=== PATIENT | male | born 1965 | race Two or more races ===

== ENCOUNTER 2022-09-03 19:15 | Emergency (ER) | payer BC, SELFPAY ==
[2022-09-03 19:30] VITALS: PULSE 95; RESP 18; TEMP 36.6; O2SAT 96; BMI 29.9
--- NOTE | 2022-09-03 19:34 | EXP.UTC ---
Discharge Plan Disposition Patient Disposition: Still a Patient Condition: Fair Prescriptions Prescriptions: No Action tizanidine 4 mg tablet 4 mg PO TID PRN (Reason: .) albuterol sulfate 90 mcg/actuation HFA aerosol inhaler 1 puff INHALATION NEEDED PRN (Reason: .) Label Comments: INHALE 1 TO 2 PUFFS BY MOUTH EVERY 4 TO 6 HOURS NEEDED loratadine 10 mg tablet 10 mg PO DAILY naproxen 500 mg tablet 500 mg PO BID Label Comments: TAKE 1 TABLET BY MOUTH TWICE DAILY WITH MEALS escitalopram oxalate 20 mg tablet 20 mg PO DAILY rosuvastatin 5 mg tablet 5 mg PO DAILY Label Comments: TAKE 1 TABLET BY MOUTH ONCE DAILY eszopiclone 3 mg tablet 3 mg PO DAILY Label Comments: TAKE 1 TABLET BY MOUTH ONCE DAILY AT NIGHT, TAKE IMMEDIATELY BEFORE BEDTIME Referrals Follow up/Referrals: Jung Schilling [Primary Care Provider] - See instructions Clinical Impressions Clinical Impression: Abdominal pain, right lower quadrant Discharge ED Provider: Theresa (ED)Aly [facility] [place] H[place] General Stated complaint: right side pain, no accident Time Seen by Provider: 09/03/22 19:34 History of Present Illness Provider Complaint: He states that he has had right sided abdominal pain for the past 1 day. He states the pain has been severe at times. He has had a poor appetite today also. He denies vomiting, but he has had nausea. Related Data Home Medications Medication Instructions Recorded Confirmed albuterol sulfate 90 mcg/actuation 1 puff inhalation NEEDED PRN . 09/03/22 09/03/22 aerosol inhaler escitalopram oxalate 20 mg tablet 20 mg PO DAILY . 09/03/22 09/03/22 eszopiclone 3 mg tablet 3 mg PO DAILY . 09/03/22 09/03/22 loratadine 10 mg tablet 10 mg PO DAILY allergies 09/03/22 09/03/22 naproxen 500 mg tablet 500 mg PO BID . 09/03/22 09/03/22 rosuvastatin 5 mg tablet 5 mg PO DAILY . 09/03/22 09/03/22 tizanidine 4 mg tablet 4 mg PO TID PRN . 09/03/22 09/03/22 Allergies Allergy/AdvReac Type Severity Reaction Status Date / Time No Known Allergies Allergy Verified 09/03/22 19:52 [facility] Disclaimer: The information contained in this section may have been updated after the patient was seen, as this information can be updated by other users. Medical History Anxiety High cholesterol Social History Smoking Status: Never smoker alcohol intake: never current occupational status: employed Travel in the last 8 weeks: None ROS Obtained: Yes All systems reviewed & no additional complaints except as documented Constitutional Constitutional: Denies chills, Denies fever(s) and Reports poor appetite ENT Ears, Nose, Mouth, and Throat: Denies dizziness and Denies sore throat Cardiovascular Cardiovascular: Denies dyspnea Respiratory Respiratory: Denies chest congestion, Denies cough and Denies dyspnea Gastrointestinal Gastrointestingal: Reports as per HPI and abdominal pain Genitourinary Male Genitourinary: Denies hematuria, Denies urinary frequency, Denies urinary hesitancy, Denies urinary incontinence and Denies urinary urgency Musculoskeletal Musculoskeletal: Denies arthralgias Integumentary/Breasts Skin/Breast: Denies rash Neurologic Neurologic: Denies dizziness Physical Exam General General appearance: alert and in no apparent distress Head Head exam: atraumatic and normocephalic Eye Eye exam: Present normal appearance, PERRL and EOMI ENT ENT exam: Present normal exam, normal oropharynx, mucous membranes moist, TM's normal bilaterally and normal external ear exam Neck Neck exam: Present normal inspection, full ROM and trachea midline; Absent tenderness, meningismus or lymphadenopathy Chest Chest inspection: Present normal inspection and symmetric chest wall rise; Absent tenderness, rash or abscess Respiratory Respiratory exam: Present normal l
[2022-09-03 20:07] LABS: Apearance,Urine Clear (Clear); Bilirubin,Urine Negative (Negative); Blood, Urine Negative (Negative); Color,Urine Yellow (Yellow); Glucose,Urine (UA) Negative (Negative); Ketones,Urine Negative (Negative); PH,Urine 5.5 (5.0-8.5); Protein,Urine Negative (Negative); Specific Gravity, Urine 1.015 (1.005-1.030); UTC Leukocyte Esterase,Urine Negative (Negative); UTC Nitrate,Urine Negative (Negative); Urobilinogen,Urine 0.2 EU/dl (0.2)
--- NOTE | 2022-09-03 20:37 | PC.NURSE ---
pt brought over from the [facility]
--- NOTE | 2022-09-03 20:45 | CT_ITS ---
PROCEDURE INFORMATION: Exam: CT Abdomen And Pelvis With Contrast Exam date and time: 09/03/22 09:10 PM Age: 57 years old Clinical indication: Abdominal pain; Patient HX: Rlq pain; Additional info: Abd pain TECHNIQUE: Imaging protocol: Computed tomography of the abdomen and pelvis with contrast. Radiation optimization: All CT scans at this facility use at least one of these dose optimization techniques: automated exposure control; mA and/or kV adjustment per patient size (includes targeted exams where dose is matched to clinical indication); or iterative reconstruction. Contrast material: ISOVUE; Contrast volume: 75 ml; Contrast route: IV; REPORTING DATA: Count of CT and Cardiac NM exams in prior 12 months: This patient has received 0 known CTs and 0 known cardiac nuclear medicine studies in the 12 months prior to the current study. COMPARISON: No relevant prior studies available. FINDINGS: Tubes, catheters and devices: None noted. Lungs: Lung bases appear clear. Heart: No significant coronary calcifications. No cardiomegaly. No significant pericardial effusion. Liver: Normal. No mass. Gallbladder and bile ducts: Normal. No calcified stones. No ductal dilation. Pancreas: Normal. No ductal dilation. Spleen: Normal. No splenomegaly. Adrenal glands: Normal. No mass. Kidneys and ureters: Normal. No hydronephrosis. Stomach and bowel: Unremarkable. No obstruction. No mucosal thickening. Appendix: Normal appendix is well visualized. No evidence of appendicitis. Intraperitoneal space: Unremarkable. No free air. No significant fluid collection. Retroperitoneal space: No significant retroperitoneal inflammatory changes are noted. Vasculature: Unremarkable. No abdominal aortic aneurysm. Lymph nodes: Unremarkable. No enlarged lymph nodes. Urinary bladder: Unremarkable as visualized. Reproductive: Unremarkable as visualized. Bones/joints: Unremarkable. No acute fracture. Soft tissues: Unremarkable. IMPRESSION: 1. No acute findings. 2. No CT evidence of appendicitis.
[2022-09-03 20:48] LABS: Microscopic, Urine URINE MICROSCOPIC (MICROSCOPIC)
[2022-09-03 20:50] LABS: Basophils # 0.1 K/mm3 (0-0.2); Basophils % 0.9 % (0.1-2.0); Eosinophils # 0.7 K/mm3 (0.0-0.4); Eosinophils % 6.9 % (0.1-12.0); Hematocrit 44.7 % (42.0-52.0); Hemoglobin 15.4 g/dL (14.1-18.0); Lymphocytes # 3.7 K/mm3 (0.7-4.5); Lymphocytes % 37.8 % (10-50); Mean Corpuscular HGB Conc 34.5 g/dL (31.8-35.4); Mean Corpuscular Hemoglobin 29.7 pg (27.0-31.2); Mean Corpuscular Volume 86.2 fl (80-94); Mean Platelet Volume 8.7 fl (7.4-10.4); Monocytes # 0.5 K/mm3 (0.1-1.0); Monocytes % 4.7 % (1.7-9.3); Neutrophils # 4.8 K/mm3 (1.8-7.8); Neutrophils % 49.6 % (37.0-80.0); Platelet Count 259 K/mm3 (142-424); Red Blood Count 5.18 M/mm3 (4.60-6.20); Red Cell Distribution Width 13.2 % (11.5-17.5); White Blood Count 9.8 K/mm3 (4.8-10.8)
[2022-09-03 20:54] LABS: Appearance,Urine CLEAR (Clear); Bilirubin,Urine Negative (Negative); Blood, Urine Negative (Negative); Color,Urine YELLOW (Yellow); Glucose,Urine (UA) Negative (Negative); Ketones,Urine Negative (Negative); Leukocyte Esterase,Urine Negative (Negative); Nitrate,Urine Negative (Negative); PH,Urine 5.5 (5.0-8.5); Protein,Urine Negative (Negative); Urobilinogen,Urine 0.2 EU/dl (0.2)
[2022-09-03 20:55] LABS: Alanine Aminotransferase 46 U/L (12-78); Albumin Level 4.6 g/dl (3.5-5.0); Albumin/Globulin Ratio 1.3 (1.1-1.8); Alkaline Phosphatase 98 U/L (38-126); Amylase 88 U/L (30-110); Anion Gap 12.9 mEq/L (5-15); Aspartate Amino Transferase 45 U/L (17-59); Bilirubin,Total 0.6 mg/dl (0.2-1.3); Blood Urea Nitrogen 20 mg/dl (9-20); Calcium 8.8 mg/dl (8.4-10.2); Carbon Dioxide 26 mmol/L (22.0-30.0); Chloride 104 mmol/L (98-107); Creatinine Clearance Estimated 104 mL/min (50-200); Estimated Glomerular Filt Rate 87 ml/min (>60); GFR (African American) 105 ML/MIN (>60); Globulin 3.6 g/dL (1.3-3.2); Glucose 98 mg/dl (74-100); Lipase 114 U/L (23-300); Potassium 3.9 mmoL/L (3.5-5.1); Sodium 139 mmol/L (136-145); Total Protein,Serum 8.2 g/dl (6.3-8.2)
[2022-09-03 21:01] LABS: C-Reactive Protein 1.6 mg/L (0-4)
[2022-09-03 21:07] LABS: Bacteria,Urine Trace /lpf
[2022-09-03 21:14] LABS: Erythrocyte Sedimentation Rate 8 mm/hr (0-20); Procalcitonin 0.047 ng/mL (0.0-2.0)
[2022-09-03 21:32] VITALS: BP 159/90; PULSE 86; RESP 19; TEMP 36.8; O2SAT 98; BMI 30.7
--- NOTE | 2022-09-03 22:28 | HMH.EDGENADL ---
Discharge Plan Disposition Patient Disposition: Home, Self-Care Condition: Fair Prescriptions Prescriptions: No Action tizanidine 4 mg tablet 4 mg PO TID PRN (Reason: .) albuterol sulfate 90 mcg/actuation HFA aerosol inhaler 1 puff INHALATION NEEDED PRN (Reason: .) Label Comments: INHALE 1 TO 2 PUFFS BY MOUTH EVERY 4 TO 6 HOURS NEEDED loratadine 10 mg tablet 10 mg PO DAILY naproxen 500 mg tablet 500 mg PO BID Label Comments: TAKE 1 TABLET BY MOUTH TWICE DAILY WITH MEALS escitalopram oxalate 20 mg tablet 20 mg PO DAILY rosuvastatin 5 mg tablet 5 mg PO DAILY Label Comments: TAKE 1 TABLET BY MOUTH ONCE DAILY eszopiclone 3 mg tablet 3 mg PO DAILY Label Comments: TAKE 1 TABLET BY MOUTH ONCE DAILY AT NIGHT, TAKE IMMEDIATELY BEFORE BEDTIME Referrals Follow up/Referrals: Jung Schilling [Primary Care Provider] - See instructions Clinical Impressions Clinical Impression: Abdominal pain, right lower quadrant Instructions Patient Instructions: DI for Acute Pain -- Adult Discharge ED Provider: Theresa (ED)Aly General Adult HPI General Chief complaint: PAIN Stated complaint: right side pain, no accident Time Seen by Provider: 09/03/22 19:34 Mode of Arrival: Family Vehicle Source of Information: Patient and Medical Record Limitations: No Limitations Description of Symptoms (Recalled from ER Triage Doc. by RN): Pt c/o R low back pain that radiates to R flank and down R inner leg to the knee. He reports he has known lumbar herniated disc and[facility], most recently on Sunday (09/01). States the pain began to worsen on while at work and he was sent home. He denies any n/v/d. He reports the pain worsens when he is sitting upright and lessens when laying down. He was tender to R flank area. History of Present Illness HPI narrative: pt seen in the [facility] and has rt sided flank and abd pain - hx of lumbar radicular dis - no fever or rash Onset (ago): day(s) Location: abdomen Severity: moderate Consistency: intermittent Associated symptoms: denies other symptoms Related Data Home Medications Medication Instructions Recorded Confirmed albuterol sulfate 90 mcg/actuation 1 puff inhalation NEEDED PRN . 09/03/22 09/03/22 aerosol inhaler escitalopram oxalate 20 mg tablet 20 mg PO DAILY . 09/03/22 09/03/22 eszopiclone 3 mg tablet 3 mg PO DAILY . 09/03/22 09/03/22 loratadine 10 mg tablet 10 mg PO DAILY allergies 09/03/22 09/03/22 naproxen 500 mg tablet 500 mg PO BID . 09/03/22 09/03/22 rosuvastatin 5 mg tablet 5 mg PO DAILY . 09/03/22 09/03/22 tizanidine 4 mg tablet 4 mg PO TID PRN . 09/03/22 09/03/22 Allergies Allergy/AdvReac Type Severity Reaction Status Date / Time No Known Allergies Allergy Verified 09/03/22 19:52 [facility] Disclaimer: The information contained in this section may have been updated after the patient was seen, as this information can be updated by other users. Medical History Anxiety High cholesterol Social History (Updated 09/03/22 @ 20:35 by Paul Nieves APRN) Smoking Status: Never smoker alcohol intake: never current occupational status: employed Travel in the last 8 weeks: None ROS Obtained: Yes All systems reviewed & no additional complaints except as documented Physical Exam General General appearance: alert and in no apparent distress Head Head exam: normocephalic Eye Eye exam: Present PERRL and EOMI ENT ENT exam: Present mucous membranes moist Neck Neck exam: Present trachea midline Respiratory Respiratory exam: Absent respiratory distress Cardiovascular Cardiovascular exam: Present regular rate Abdominal Exam Abdominal exam: Present soft and tenderness; Absent guarding or rebound Abdominal tenderness: Present RLQ and moderate Extremities Exam Extremities exam: Present full ROM Back Exam
[2022-09-03 22:37] VITALS: BP 145/75; PULSE 75; RESP 20; TEMP 36.8; O2SAT 97
== END 2022-09-03 23:03 | disposition home or self-care (01) ==
LOC: UTC 20:15 → ER 20:32
PROVIDERS: Nurse Practitioner Family; Emergency Provider Emergency Medicine; PCP Family Medicine
DX: R10.31 Right lower quadrant pain (principal); M79.651 Pain in right thigh
CPT/HCPCS: 74177; 80053; 81001; 81003; 82150; 83690; 84145; 85025; 85651; 86140; 87086; 96361; 96374; 99284; 99285; Q9967

== ENCOUNTER 2024-03-28 19:27 | Emergency (ER) | payer BC, OTHER, SELFPAY ==
[2024-03-28 19:46] VITALS: BP 190/116; PULSE 67; RESP 16; TEMP 36.8; O2SAT 95; BMI 33.3
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
[2024-03-28] MEDS: IBUPROFEN 400 MG TABLET 800 MG PO (20:01)
[2024-03-28 20:07] VITALS: BP 161/98; PULSE 64; RESP 20; TEMP 36.6; O2SAT 99
== END 2024-03-28 20:08 | disposition home or self-care (01) ==
PROVIDERS: Emergency Provider Student in an Organized Health Care Education/Training Program; PCP Family Medicine
DX: S09.90XA Unspecified injury of head, initial encounter (principal); S00.83XA Contusion of other part of head, initial encounter; S00.33XA Contusion of nose, initial encounter; G50.1 Atypical facial pain; J34.89 Other specified disorders of nose and nasal sinuses; Y09 Assault by unspecified means
CPT/HCPCS: 99283

== ENCOUNTER 2024-12-08 17:11 | Outpatient (CLI) | payer BC, OTHER, SELFPAY ==
--- OUTSIDE RECORDS SUMMARY | 2020-07-29 14:41 | XMS_ITS | Encounter Summary ---
[facility] Address [address] [place] [address] Care Team Providers Care Promotions Director Name Role Phone Jung Schilling MD Primary Care Provider [phone] Encounter Details Date Type Department Care Team (Late st Contact Info) Description 07/29/2020 2:41 PM EDT Hospital Encounter [facility] [address] [place] [address] Social History Tobacco Use Types Packs/Day Years Used Date Smoking Tobacco: Former Cigarettes 1.3 45 0 04/16/1979 - 04/16/2009 Passive Smoke Exposure: Past Smokeless Tobacco: Never Alcohol Use Standard Drinks/Week Comments Yes 0 (1 standard drink = 0.6 oz pur e alcohol) Social occasions like holidays AUDIT-C Answer Date Recorded Q1: How often do you have a drink containing alc ohol? Monthly or less 03/07/2023 Q2: How many drinks containi ng alcohol do you have on a typical day when you are drinking? 1 or 2 03/07/2023 Q3: How often do you have si x or more drinks on one occasion? Never 03/07/2023 PHQ-2 Answer Date Recorded Retired PHQ-9: Brief Depression Severity Measure Score 0 08/04/2022 Abuse Screen Answer Date Recorded Feels Unsafe at Home or Work/School no 02/05/2023 Feels Threatened by Someone no 10/2 06/2022 Does Anyone Try to Keep You From Having Contact with Others or Doing Things Outside Your Home? no 02/05/2023 Physical Signs of Abuse Present no 02/05/2023 Housing Stability Answer Date Recorded Current Living Arrangements home 02/15 Potentially Unsafe Housing Conditions Not on laura e 03/07/2023 Disabilities Answer Date Recorded Difficulty Concentrating, Remembering or Making Decisions no 03/07/2023 Difficulty Managing Errands Independently yes 03/07/2023 Education Answer Date Recorded Help with school or training? Not on file Preferred Language Not on file 01/20/2023 PHQ-2 Answer Date Recorded Patient Health Questionnaire-9 Score 20 09/15/2024 Sex and Gender Information Value Date Recorded Sex Assigned at Not on file Legal Sex Male 12:14 PM EDT Gender Identity Not on file Sexual Orientation Not on file Occupation Industry Job Start Date Job End Date Not on file Not on file Not on file Not on file documented as of this encounter Functional Status * Question Answer Date of Assessment Author 1. Wish to be (Past 1 Month) Yes 09/15/2024 12:57 PM EDT Patricia Simpson MA 2. Non-Specific Active Suicidal Thoughts (Past 1 Month) No 09/15/2024 12:57 PM EDT Patricia Simpson MA * Calculated C-SSRS Risk Score (Lifetime/Recent) Answer Date of Assessment Author Low Risk 09/15/2024 12:57 PM EDT Tracee Stauffer MA * [place] Suicide Severity Rating Scale (Screener/Recent Self-Report) Question Answer Date of Assessment Author 6. Suicidal Behavior (Lifetime) No 09/15/2024 12:57 PM EDT Patricia Simpson MA * Question Answer Date of Assessment Author Little interest or pleasure in doing things Not at all 09/15/2024 12:57 PM JANAET Tracee Simpson MA Feeling down, depressed, or hopeless Nearly every day 09/15/2024 12:57 PM JANAET Patricia Simpson MA Patient Health Questionnaire-2 Score 3 09/15/2024 12:57 PM EDT Chantal Simpson MA Trouble falling or staying asleep, or sleeping too much Nearly every day 09/15/2024 12:57 PM EDT Patricia Simpson MA Feeling tired or having little energy Nearly every day 09/15/2024 12:57 PM EDT Patricia Simpson MA Poor appetite or overeating Nearly every day 09/15/2024 12:57 PM EDT Patricia Simpson MA Feeling bad about yourself - or that you are a failure or have let yourself or your family down Several days 09/15/2024 12:57 PM EDT Patricia Simpson MA Trouble concentrating on things, such as reading the newspaper or watching television Nearly every day 09/15/2024 12:57 PM JANAET Patricia Simpson MA Moving or speaking so slowly that other people could have noticed? Or the opposite - being so fidgety or restless that you have been moving around a lot more than usual. Nearly every day 09/15/2024 12:57 PM JANAET Patricia Simpson MA Thoughts that you would be better off or hurting yourself in some way Several days 09/15/2024 12:57 PM EDT Alfonso Simpson MA Patient Health Questionnaire-9 Score 20 09/15/2024 12:57 PM JANAET Chantal Simpson MA How difficult have these problems made it for you to do your work, take care of things at home, or get along with other people? Very difficult 09/15/2024 12:57 PM EDT Tracee Simpson MA documented as of this encounter Plan of Treatment Upcoming Encounters Date Type Department Care Team (Late st Contact Info) Description 01/05/2025 2:45 PM EDT Office Visit [facility] [address] [facility] [address] [place] [address] Tory Jerez MD [address] [facility] [address] [place] [address] 02/04/2025 1:15 PM EDT Office Visit [facility] [address] [facility] [address] [place] [address] Ariel Coyne MD [address] [facility] [address] [place], [place] [id number] 02/17/2025 2:00 PM EST Office Visit [facility] [address] [facility] [facility] [address] [place] [address] Aaliyah Montana APRN [address] [facility] [address] [place], [place] [id number] 02/23/2025 9:00 AM EST Office Visit [facility] [address] [place] [address] Jung Schilling MD [address] [place] [address] documented as of this encounter Procedures Procedure Name Priority Date/Time Associated Diagnosis Comments XR CHEST PA AND LATERAL Routine 07/29/2020 2:49 PM EDT SOB (shortness of breath) documented in this encounter Results * XR Chest PA & Lateral (07/29/2020 2:49 PM EDT) Anatomical Region Laterality Modality Body, Chest N/A Radiographic Frieda ging Narrative 07/29/2020 3:37 PM EDT PA and lateral chest x-rays obtained Cardiomegaly is present CT ratio 17 x 31 Mild eventration of both diaphragms but normal position no evidence of diaphragm elevation. No effusions, infiltrates, or consolidation us James Sutherland MD [facility] ORDERABLES Final Result documented in this encounter Visit Diagnoses Not on filedocumented in this encounter Additional Health Concerns Infection Onset Date Last Indicated Resolved Time COVID Screen (preop/placement) 03/26/2022 03/26/2022 03/26/2022 9:54 PM EST Influenza 03/26/2022 04/01/2022 05/01/2022 9:08 PM EST COVID Screen (preop/placement) 04/01/2022 04/01/2022 04/01/2022 4:09 PM EST documented as of this encounter Care Teams Promotions Director Relationship Specialty Start Date End Date Jung Schilling MD [address] [place] [address] PCP - General Family Medicine 11/02/15 documented as of this encounter
--- OUTSIDE RECORDS SUMMARY | 2021-08-13 19:35 | XMS_ITS | Encounter Summary ---
Author Organization [facility] Address [address] [place] [id number] Care Team Providers Care Infection Control Preventionist Name Role Phone Jung Schilling MD Primary Care Provider Reason for Referral * Hospital - Outpatient (Routine) - Closed Specialty Diagnoses / Procedures Referred By Contac t Referred To Contact Sleep Medicine Diagnoses MORROW (dyspnea on exertion) Former smoker Pulmonary hypertension Obesity, Class I, BMI 30-34.9 TREV (obstructive sleep apnea) Procedures Polysomnography 4 or More Parameters Polysomnography 4 or More Parameters With CPAP James Sutherland MD Phone: tel: fax: [facility] [address] [place] [phone] Phone: tel: fax: Referral ID Status Reason Start Date Expiration Date Visits Re quested Visits Authorized [id number] Closed 07/11/2021 09/08/2021 1 1 Reason for Visit * Hospital - Outpatient (Routine) - Closed Specialty Diagnoses / Procedures Referred By Contac t Referred To Contact Sleep Medicine Diagnoses MORROW (dyspnea on exertion) Former smoker Pulmonary hypertension Obesity, Class I, BMI 30-34.9 TREV (obstructive sleep apnea) Procedures Polysomnography 4 or More Parameters Polysomnography 4 or More Parameters With CPAP James Sutherland MD Phone: tel: fax: [facility] [address] [facility] [address] [place] [address] Phone: tel: fax: Referral ID Status Reason Start Date Expiration Date Visits Re quested Visits Authorized [id number] Closed 07/11/2021 09/08/2021 1 1 Encounter Details Date Type Department Care Team (Late st Contact Info) Description 08/13/2021 7:35 PM EDT Hospital Encounter [facility] [address] [facility] [address] [place] [phone] James Sutherland MD [address] [place] [address] MORROW (dyspnea on exertion); Former smoker (Stopped 2009); Mild pulmonary hypertension (R/O WHO Group 3 - TREV); Obesity, Class I, BMI 30-34.9; TREV (obstructive sleep apnea); Former smoker; Pulmonary hypertension Social History Tobacco Use Types Packs/Day Years [...] no 02/05/2023 Feels Threatened by Someone no 01/15 Does Anyone Try to Keep You From [...] on file documented as of this encounter Last Filed Vital Signs Vital Sign Reading Time Taken Comments Blood Pressure - - Pulse 81 08/13/2021 7:36 PM EDT Temperature - - Respiratory Rate - - Oxygen Saturation 95% 08/13/2021 7:36 PM EDT Inhaled Oxygen Concentration - - Weight 87.5 kg (192 lb 14.4 oz) 08/13/2021 7:36 PM EDT Height 165.1 cm (5' 5 ) 08/13/2021 7:36 PM EDT Body Mass Index 32.1 08/13/2021 7:36 PM EDT documented in this encounter Functional Status * Question Answer Date of Assessment Author 1. Wish to be (Past 1 Month) Yes 09/15/2024 12:57 PM EDT Patricia Simpson MA 2. Non-Specific Active Suicidal Thoughts (Past 1 Month) No 09/15/2024 12:57 PM EDT Patricia Simpson MA * Calculated C-SSRS Risk Score (Lifetime/Recent) Answer Date of Assessment Author Low Risk 09/15/2024 12:57 PM EDT Tracee Stauffer MA * [place] Suicide Severity Rating Scale (Screener/Recent Self-Report) Question Answer Date of Assessment Author 6. Suicidal Behavior (Lifetime) No 09/15/2024 12:57 PM EDT Patricia Simpson MA * Question Answer Date of Assessment Author Little interest or pleasure in doing things Not at all 09/15/2024 12:57 PM EDT Tracee Simpson MA Feeling down, depressed, or hopeless Nearly every day 09/15/2024 12:57 PM EDT Patricia Simpson MA Patient Health Questionnaire-2 Score [...] television Nearly every day 09/15/2024 12:57 PM EDT Patricia Simpson MA Moving or speaking so slowly that other people could have noticed? Or the opposite - being so fidgety or restless that you have been moving around a lot more than usual. Nearly every day 09/15/2024 12:57 PM EDT Patricia Simpson MA Thoughts that you would be better off or hurting yourself in some way Several days 09/15/2024 12:57 PM EDT Alfonso Simpson MA Patient Health Questionnaire-9 Score 20 09/15/2024 12:57 PM EDT Chantal Simpson MA How difficult have these problems made it for you to do your work, take care of things at home, or get along with other people? Very difficult 09/15/2024 12:57 PM EDT Tracee Simpson MA documented as of this encounter Plan of Treatment Upcoming Encounters Date Type Department Care Team (Late st Contact Info) Description 01/05/2025 2:45 PM EDT Office Visit [facility] [address] [facility] [address] [place] [address] Tory Jerez MD [address] [facility] [address] [place] [address] 02/04/2025 1:15 PM EDT Office Visit [facility] [address] [facility] [address] [place] [phone] Ariel Coyne MD [address] [facility] [address] [place], [place] [phone] 02/17/2025 2:00 PM EST Office Visit [facility] [address] [phone] Aaliyah Montana APRN [address] [address] 02/23/2025 9:00 AM EST Office Visit [facility] [address] [place] [address] Jung Schilling MD [address] [place] [address] documented as of this encounter Procedures Procedure Name Priority Date/Time Associated Diagnosis Comments NPSG Routine 08/15/2021 9:31 AM EDT MORROW (dyspnea on exertion) Former smoker Pulmonary hypertension Obesity, Class I, BMI 30-34.9 TREV (obstructive sleep apnea) documented in this encounter Results * NPSG (08/15/2021 9:31 AM EDT) Narrative Hugh Romero MD - 08/15/2021 10:32 AM EDT Polysomnography Report Patient Name: Tyrone Landrum Interpreting Physician: Hugh Romero MD Date of : 1965 Referring Physician: No info available Primary Care Physician: Jung Schilling MD Date of Study: Clinical Information 56-year-old male who saw Dr. Isidoro Sutherland on 07/06/2021. He was evaluated for dyspnea on exertion and fatigue. He was noted to have a history of obstructive sleep apnea and was prescribed CPAP in the past but did not think it was helping and so he had not been using it. Records of a sleep study in [place] from 07/25/2020 is in his chart. He had an average AHI of 12 events over 3 nights. He has been noted to have diastolic dysfunction and mild pulmonary hypertension. He has daytime somnolence and snoring. A polysomnogram was ordered. Methods used for Diagnostic Study: Subject was monitored in the sleep laboratory. Electroencephalogram (C3/M2, C4/M1, F3/M2, F4/M1, 01/M2, O2/M1), EOG, EKG, and EMG (chin and bilateral anterior tibialis) were monitored by surface electrodes and recorded utilizing a computerized polygraph. Airflow was recorded by a thermistor and pressure transducer at the nose and mouth and oxygen saturation was recorded by a pulse oximeter. Thoracic and abdominal respiratory movements were recorded on 2 separate channels by respiratory inductive plethysmograph. Sleep stages were scored by standard techniques and abnormal respiratory events, cardiac arrhythmias, and leg movements were analyzed. Polysomnography Results Diagnostic Summary Total Recording Time: Total Recording Time (TIB) (min): 567.1 minutes Total Sleep Time: Total Sleep Time (TST)(min): 528.3 minutes Sleep Latency: Sleep Latency (min): 4.3 Stage R Latency: Stage R Latency (min): 182.5 min Sleep Efficiency: Sleep Efficiency (%): 93.2 % Respiratory Data Obstructive Apnea Index: Obstructive Apnea Index (#/hr TST): 0.8 Central Apnea Index: Central Apnea Index (#/hr TST): 0 Mixed Apnea Index: Mixed Apnea Index (#/hr TST): 0 Obstructive Hypopnea Index: Obstructive Hypopnea Index (#/hr TST): 7.3 Total Apnea Index: Total Apnea Index (#/hr TST): 0.8 AHI: AHI: 8.1 RDI: RDI (if applicable): 14.3 NREM Total Apnea Idex: NREM Total Al (#/hr TST): 0.1 REM Total Apnea Index: REM TOTAL Al (#/hr TST): 3 REM Hypopnea Index: REM Hypopnea Index: 15.6 NREM Hypopnea Index: NREM Hypopnea Index: 4.8 Diagnostic Respiratory Index Summary by Body Position Supine AHI, TOTAL AHI, TOTAL : 8 RDI, TOTAL RDI, TOTAL : 14.2 TST (min) TST (MIN) : 526.5 Left AHI, TOTAL AHI, TOTAL : 33.3 RDI, TOTAL RDI, TOTAL : 33.3 TST (min) TST (min) : 1.8 Right AHI, TOTAL No data recorded RDI, TOTAL No data recorded TST (min) No data recorded Prone AHI, TOTAL No data recorded RDI, TOTAL No data recorded TST (min) No data recorded Arousals Respiratory Arousal Index: Resp Arousal Index (#/hr TST): 3.6 Leg Arousal Index: Leg Arousal Index (#/hr TST): 2 Spontaneous Arousal Index: No data recorded Total Arousal Index: Spontaneous Arousal Index (#/hr TST): 6.8 Limb Movements PLMS Index: Total # PLMS Arousals: 20 PLMS Arousal Index: PLMS Index: 44.7 Cardiac Average HR During Sleep: Avg HR During Sleep: 47.8 bpm Highest HR During Sleep: Highest HR During Sleep: 77 bpm Oximetry Minimum SPO2: Min SpO2: 76 % O2 Saturation, Mean Value: Arterial Oxygen Saturation, Mean Value (%): 93 % Impression: Sleep efficiency was 93%. The arousal index was mildly elevated. The AHI was mildly elevated overall at 8.1. This was higher during REM sleep. He slept almost exclusively in the supine position throughout the night. All of the events appeared to be obstructive in nature. The PLM index was elevated at 45 though the PLM arousal index was not elevated. Significant or prolonged arrhythmias were not noted. Oxygen saturations averaged 93% with minimum saturation of 76% and saturations were less than 88% for 12 minutes in total throughout the night. - mild obstructive sleep apnea is present. - Oxygen desaturation is present. - Snoring is present. Plan: - Recommend trial of CPAP such as AutoSet with an 8 cm minimum an 18 cm maximum. - Recommend weight loss. - Could consider oral appliance therapy. - Could consider surgical options Follow-up: Isidoro Sutherland MD Electronically signed by: Hugh Romero MD 08/15/21 10:29 EDT James Sutherland MD [facility] ORDERABLES Final Result documented in this encounter Visit Diagnoses Diagnosis MORROW (dyspnea on exertion) Other dyspnea and respiratory abnormality Former smoker (Stopped 2009) Personal history of tobacco use, presenting hazards to health Mild pulmonary hypertension (R/O WHO Group 3 - TREV) Other chronic pulmonary heart diseases Obesity, Class I, BMI 30-34.9 TREV (obstructive sleep apnea) Obstructive sleep apnea (adult) (pediatric) documented in this encounter Additional Health Concerns Infection Onset Date Last Indicated Resolved Time COVID Screen (preop/placement) 03/26/2022 03/26/2022 03/26/2022 9:54 PM EST Influenza 03/26/2022 04/01/2022 05/01/2022 9:08 PM EST COVID Screen (preop/placement) 04/01/2022 04/01/2022 04/01/2022 4:09 PM EST Assessment Noted Time PHQ-2 Depression Total Score: 1 07/21/19 22 8:53 AM EDT documented as of this encounter Care Teams Infection Control Preventionist Relationship Specialty Start Date End Date Jung Schilling MD [address] [place] [address] PCP - General Family Medicine 11/02/15 documented as of this encounter
--- OUTSIDE RECORDS SUMMARY | 2023-03-29 13:55 | XMS_ITS | Encounter Summary ---
Author Organization [facility] Address [address] [place] [address] Care Team Providers Care Desk Maker Name Role Phone Jung Schilling MD Primary Care Provider Encounter Details Date Type Department Care Team (Late st Contact Info) Description 03/29/2023 12:55 PM EST Hospital Encounter [facility] PULMONARY & CRITICAL CARE MEDICINE [address] [place] [address] Social History Tobacco Use Types [...] 12:57 PM EDT Tracee Stauffer MA * [place] Suicide Severity Rating Scale (Screener/Recent Self-Report) Question [...] Description 01/05/2025 2:45 PM EDT Office Visit [facility] [address] [facility] [address] [place] [address] Tory Jerez MD 210 [facility] [address] [place] [address] 02/04/2025 1:15 PM EDT Office Visit [facility] ENDOCRINOLOGY [address] [facility] [address] [place] [address] Ariel Coyne MD [address] [place], [place] [address] 02/17/2025 2:00 PM EST Office Visit [facility] RHEUMATOLOGY [address] [place] [address] Aaliyah Montana APRN [address] [facility] [address] [place], [place] [id number] 02/23/2025 9:00 AM EST Office Visit [facility] FAMILY MEDICINE [address] [place] [address] Jung Schilling MD [address] [place] [address] documented as of this encounter Procedures Procedure Name Priority Date/Time Associated Diagnosis Comments XR CHEST PA AND LATERAL Routine 03/29/2023 12:55 PM EST MORROW (dyspnea on exertion) documented in this encounter Results * XR Chest PA & Lateral (03/29/2023 12:55 PM EST) Anatomical Region Laterality Modality Body, Chest N/A Radiographic Frieda ging Narrative 03/29/2023 1:36 PM EST PA and lateral chest x-rays obtained Cardiomegaly is present CT ratio 17 x 32 No effusions, infiltrates, or consolidation us James Sutherland MD IMG DIAGNOSTIC IMAGING ORDERABLES Final Result documented in this encounter Visit Diagnoses Not on filedocumented in this encounter Care Teams Desk Maker Relationship Specialty Start Date End Date Jung Schilling MD [address] [place] [address] PCP - General Family Medicine 11/02/15 documented as of this encounter
--- OUTSIDE RECORDS SUMMARY | 2024-05-26 15:31 | XMS_ITS | Encounter Summary ---
Author Organization [facility] Address [address] [place] [address] Care Team Providers Care Forest Supervisor Name Role Phone Jung Schilling MD Primary Care Provider [phone] Encounter Details Date Type Department Care Team (Late st Contact Info) Description 05/26/2024 2:31 PM EST Hospital Encounter [facility] PULMONARY & CRITICAL CARE MEDICINE [address] [place] [address] Social History Tobacco Use Types [...] 12:57 PM EDT Tracee Stauffer MA * [place] Suicide Severity Rating Scale (Screener/Recent Self-Report) Question [...] Description 01/05/2025 2:45 PM EDT Office [facility] [address] [facility] [address] [place] [address] Tory Jerez MD [address] [facility] [address] [place] [address] 02/04/2025 1:15 PM EDT Office Visit [facility] ENDOCRINOLOGY [address] [facility] [address] [place] [address] Ariel Coyne MD [address] [place], [place] [id number] 02/17/2025 2:00 PM EST Office Visit [facility] RHEUMATOLOGY [address] [facility] [address] [place] [address] Aaliyah Montana APRN [address] [facility] [address] [place], [place] [id number] 02/23/2025 9:00 AM EST Office Visit [facility] FAMILY MEDICINE [address] [place] [address] Jung Schilling MD [address] [place] [address] documented as of this encounter Procedures Procedure Name Priority Date/Time Associated Diagnosis Comments XR CHEST PA AND LATERAL Routine 05/26/2024 2:35 PM EST Asthma documented in this encounter Results * XR Chest PA & Lateral (05/26/2024 2:35 PM EST) Anatomical Region Laterality Modality Body, Chest N/A Radiographic Frieda ging 05/27/2024 4:48 PM EST Impressions 05/27/2024 4:48 PM EST Impression: No acute cardiopulmonary findings. Electronically Signed: Eboni Cuellar MD 05/27/2024 4:48 PM EST Workstation ID: [id number] Narrative 05/27/2024 4:48 PM EST XR CHEST PA AND LATERAL Date of Exam: 05/26/2024 2:35 PM EST Indication: ASTHMA Comparison: CT chest 04/11/2023. PA and lateral chest 03/29/2023. Findings: Clear lungs. Normal heart size. No pleural effusion or pneumothorax or acute osseous abnormality. Procedure Note Eboni Cuellar MD - 05/27/2024 XR CHEST PA AND LATERAL Date of Exam: 05/26/2024 2:35 PM EST Indication: ASTHMA Comparison: CT chest 04/11/2023. PA and lateral chest 03/29/2023. Findings: Clear lungs. Normal heart size. No pleural effusion or pneumothorax oracute osseous abnormality. IMPRESSION: Impression: No acute cardiopulmonary findings. Electronically Signed: Eboni Cuellar MD 05/27/2024 4:48 PM EST Workstation ID: [id number] us Jane Kim PATTERN SHOP SUPERVISOR IMG DIAGNOSTIC IMAGING ORDERA BLES Final Result documented in this encounter Visit Diagnoses Not on filedocumented in this encounter Additional Health Concerns Assessment Noted Time PHQ-2 Depression Total Score: 6 05/16/19 24 11:33 AM EST documented as of this encounter Care Teams Forest Supervisor Relationship Specialty Start Date End Date Jung Schilling MD [address] [place] [address] PCP - General Family Medicine 11/02/15 documented as of this encounter
--- OUTSIDE RECORDS SUMMARY | 2024-11-21 13:00 | XMS_ITS | Encounter Summary ---
Author Organization [facility] Address [address] [place] [id number] Care Team Providers Care Sonographer Name Role Phone Jung Schilling MD Primary Care Provider [phone] Reason for Visit * Reason Comments LOW T4 * Consultation (Routine) - Closed Specialty Diagnoses / Procedures Referred By Contandres t Referred To Contact Endocrinology Diagnoses Low serum T4 level Procedures MI OFFICE/OUTPATIENT NEW MODERATE MDM 45 MINUTES [place] Schwartz DO Phone: tel: fax: [facility] ENDOCRINOLOGY [address] [address] Phone: tel: fax: Referral ID Status Reason Start Date Expiration Date V isits Requested Visits Authorized [id number] Closed Specialty Services Required 06/27/2024 09/26/2025 1 1 Encounter Details Date Type Department Care Team (Late st Contact Info) Description 11/21/2024 1:00 PM EDT Office Visit [facility] ENDOCRINOLOGY [address] [address] Ariel Coyne MD [address] [address] Borderline abnormal TFTs (Primary Dx) Social History Tobacco Use Types Packs/Day Years [...] Sign Reading Time Taken Comments Blood Pressure 110/68 11/21/2024 12:43 PM EDT Pulse 69 11/21/2024 12:43 PM EDT Temperature - - Respiratory Rate - - Oxygen Saturation 92% 11/21/2024 12:43 PM EDT Inhaled Oxygen Concentration - - Weight 94.8 kg (209 lb) 11/21/2024 12:43 PM EDT Height 162.6 cm (5' 4 ) 11/21/2024 12:43 PM EDT Body Mass Index 35.87 11/21/2024 12:43 PM EDT documented in this encounter Progress Notes * Ariel Coyne MD - 11/21/2024 4:17 PM EDTAssociated Problem(s): Borderline abnormal TFTs Low ft4 with normal tsh can be due to central hypothyroidism or can be due to accelerated metabolism of t4 due to medication. As his brain mri showed no pituitary abnormality, the latter is the more likely cause here. I do note that the mri showed small vessel vascular disease which is probably causing his mental status changes. Several of his meds alter t4 metabolism. We can try t4 supplementation to see if that helps * Ariel Coyne MD - 11/21/2024 1:00 PM EDT Images from the original note were not included. Office Note Date: 11/21/2024 Patient Name: Tyrone Landrum : 1965 Chief Complaint Patient presents with LOW T4 History of Present Illness: Tyrone Landrum is a 59 y.o. male who presents for LOW T4 . Patient is seen for a new patient evaluation HE WAS SEEING DR SCHWARTZ FOR ARTHRITIS AND + MARY. LABS SHOWED NORMAL TSH WITH LOW FREE T4 NO HX OF THYROID DISEASE. NO MAJOR HEAD TRAUMA MRI OF BRAIN SHOWED SMALL VESSEL ISCHEMIC DISEASE MEMORY LOSS A BIG ISSUE. NO TEMPERATURE INTOLERANCE SOME WEIGHT LOSS FATIGUE HE HAS HAD MUSCLE PAIN AND HIGH CPK MUSCLES FEEL NUMB Subjective Patient was born where: [place] . Facial radiation exposure: No. High iodine intake: No Family hx of thyroid disease: No. Review of Systems: Review of Systems Constitutional: Positive for fatigue and unexpected weight change. Musculoskeletal: Positive for arthralgias and myalgias. Psychiatric/Behavioral: Positive for confusion and sleep disturbance. The following portions of the patient's history were reviewed and updated as appropriate: allergies, current medications, past family history, past medical history, past social history, past surgicalhistory, and problem list. Objective Visit Vitals BP 110/68 (BP Location: Right arm, Patient Position: Sitting) Pulse 69 Ht 162.6 cm (64 ) Wt 94.8 kg (209 lb) SpO2 92% BMI 35.87 kg/m?? Physical Exam: Physical Exam Vitals reviewed. Constitutional: General: He is not in acute distress. Appearance: He is normal weight. He is not ill-appearing, toxic-appearing or diaphoretic. Neck: Comments: No goiter Lymphadenopathy: Cervical: No cervical adenopathy. Neurological: Mental Status: He is alert. Psychiatric: Comments: Very poor recall Assessment / Plan Assessment & Plan: Problem List Items Addressed This Visit Borderline abnormal TFTs - Primary Current Assessment & Plan Low ft4 with normal tsh can be due to central hypothyroidism or can be due to accelerated metabolism of t4 due to medication. As his brain mri showed no pituitary abnormality, the latter is the more likely cause here. I do note that the mri showed small vessel vascular disease which is probably causing his mental status changes. Several of his meds alter t4 metabolism. We can try t4 supplementation to see if that helps Relevant Medications ibuprofen (ADVIL,MOTRIN) 800 MG tablet naproxen (NAPROSYN) 500 MG tablet rosuvastatin (CRESTOR) 5 MG tablet levothyroxine (Synthroid) 50 MCG tablet Electronically signed by : Ariel Coyne MD 11/21/2024 documented in this encounter Plan of Treatment Upcoming Encounters Date Type Department Care Team (Late st Contact Info) Description 01/05/2025 2:45 PM EDT Office Visit [facility] [address] [facility] [address] [place] [address] Tory Jerez MD [address] [facility] [address] [place] [address] 02/04/2025 1:15 PM EDT Office Visit [facility]CRINOLOGY [address] [facility] [address] [place] [address] Ariel Coyne MD [address] [facility] [address] [place], [place] [id number] 02/17/2025 2:00 PM EST Office Visit [facility] RHEUMATOLOGY [address] [facility] [address] [place] [address] Aaliyah Montana APRN [address] [facility] [address] [place], [place] [id number] 02/23/2025 9:00 AM EST Office Visit [facility] FAMILY MEDICINE [address] [place] [address] Jung Schilling MD [address] [place] [address] documented as of this encounter Visit Diagnoses Diagnosis Borderline abnormal TFTs- Primary documented in this encounter Additional Health Concerns Assessment Noted Time PHQ-2 Depression Total Score: 6 05/16/19 24 11:33 AM EST documented as of this encounter Care Teams Sonographer Relationship Specialty Start Date End Date Jung Schilling MD [address] [place] [address] PCP - General Family Medicine 11/02/15 documented as of this encounter
[2024-12-08 23:04] LABS: Influenza A, PCR Not Detected (NotDetected); Influenza B, PCR Not Detected (NotDetected)
[2024-12-09 06:36] LABS: Coronavirus 19, PCR Detected (NotDetected)
--- OUTSIDE RECORDS SUMMARY | 2024-12-10 11:25 | XMS_ITS | Clinical Summary ---
Author Organization [facility] Address [address] [place] [id number] Care Team Providers Care Insurance Administrative Assistant Name Role Phone Jung Schilling MD Primary Care Provider [phone] Allergies Active Allergy Reactions Criticality Noted Date Comments Zolpidem Other (See Comments) 02/06/2024 Night lr Rosuvastatin Myalgia 07/07/2024 Medications fluticasone (FLONASE) 50 MCG/ACT nasal spray 024 Active ipratropium-albut silvina (DUO-NEB) 0.5-2.5 mg/3 ml nebulizerIndicati ons:COPD with exacerbation Take 3 mL by nebulization Every 4 (Four) Hours As Needed for Wheezing. 360 mL 1 024 Active ibuprofen (ADVIL,MOTRIN) 800 MG tablet 024 Active Movantik 25 MG tablet Take 1 tablet by mouth Every Morning. 90 tablet 1 025 Active naproxen (NAPROSYN) 500 MG tabletIndications :Arthritis of knee Take 1 tablet by mouth 2 (Two) Times a Day With Meals. 180 tablet 3 025 Active donepezil (Aricept) 5 MG tablet Take 1 tablet by mouth Every Night. 30 tablet 5 025 2025 Active escitalopram (LEXAPRO) 20 MG tabletIndications :Dysthymia Take 1.5 tablets by mouth Daily. 135 tablet 1 025 Active busPIRone (BUSPAR) 30 MG tabletIndications :Dysthymia,Stress Take 1 tablet by mouth 2 (Two) Times a Day. 60 tablet 025 Active Fluticasone-Umecl idin-Vilant (Trelegy Ellipta) 200-62.5-25 MCG/ACT inhalerIndication s:Idiopathic asthma,MORROW (dyspnea on exertion) Inhale 1 puff Daily. 1 each 025 Active tiZANidine (ZANAFLEX) 4 MG tabletIndications :Mid back pain Take 1 tablet by mouth Every 8 (Eight) Hours As Needed for Muscle Spasms. 270 tablet 025 Active loratadine (CLARITIN) 10 MG tabletIndications :Seasonal allergies Take 1 tablet by mouth Daily. 90 tablet 025 Active eszopiclone (LUNESTA) 3 MG tabletIndications :Primary insomnia Take 1 tablet by mouth Every Night. Take immediately before bedtime 30 tablet 025 Active gabapentin (NEURONTIN) 600 MG tabletIndications :Paresthesia of right leg,Chronic right-sided low back pain with right-sided sciatica Take 1 tablet by mouth 2 (Two) Times a Day. 60 tablet 025 Active albuterol sulfate HFA 108 (90 Base) MCG/ACT inhalerIndication s:COPD with exacerbation USE 1 TO 2 INHALATIONS EVERY 4 TO 6 HOURS NEEDED 25.5 g 3 025 Active furosemide (LASIX) 20 MG tablet TAKE ONE TABLET BY MOUTH EVERY MORNING NEEDED FOR EDEMA 30 tablet 5 025 Active montelukast (SINGULAIR) 10 MG tablet TAKE ONE TABLET BY MOUTH EVERY night 90 tablet 1 025 Active Dulera 200-5 MCG/ACT inhaler Inhale 2 puffs 2 (Two) Times a Day. 025 Active ondansetron ODT (ZOFRAN-ODT) [address] 1 TABLET ON THE TONGUE AND allow TO DISSOLVE EVERY 8 HOURS 025 Active oxyCODONE-acetami nophen (PERCOCET) 5-325 MG per tablet Take 1 tablet by mouth See Admin Instructions. Take 1 tablet by mouth every 4 to 6 hours as needed for pain Active rosuvastatin (CRESTOR) 5 MG tablet Take 1 tablet by mouth Daily. Active levothyroxine (Synthroid) 50 MCG tablet Take 1 tablet by mouth Daily. 90 tablet 3 025 2025 Active furosemide (Lasix) 20 MG tablet 1 PO QAM PRN edema 30 tablet 5 025 2024 Discontinued montelukast (SINGULAIR) 10 MG tablet Take 1 tablet by mouth Every Night. 90 tablet 1 025 2024 Discontinued atorvastatin (Lipitor) 20 MG tabletIndications :Hypercholesterol emia Take 1 tablet by mouth Daily. 90 tablet 1 025 2024 Discontinued(* Therapy completed) Active Problems Problem Noted Date Diagnosed Date Borderline abnormal TFTs 11/21/2024 Assessment & Plan (11/21/2024 4:17 PM EDT): Low ft4 with normal tsh can be [...] t4 supplementation to see if that helps Antiphospholipid antibody positive 09/17/2024 Primary osteoarthritis involving multiple joints 06/26/2024 Assessment & Plan (06/26/2024 10:17 AM EDT): Tylenol PRN is ok as directed He has taken/tried oral NSAIDS He has taken gabapentin for neuropathic pain He has taken muscle relaxer's like tizanidine PRN He has seen neurosurgery He has had back surgery He has had back injections He has had trigger point injections He has seen pain management specialists (Dr Alfa Miller) They are looking at getting him a spinal a stimulator He had a psych evaluation for this He has done some physical therapy Orders: Myositis Panel III Plus; Future QuantiFERON-TB Gold Plus; Future Hepatitis Panel, Acute; Future Uric Acid; Future 14.3.3 ETA, Rheum. Arthritis; Future MARY 12 Plus Profile (RDL); Future MARY by IFA, Reflex to Titer and Pattern; Future ANCA Panel; Future Beta-2 Glycoprotein Antibodies; Future CBC Auto Differential; Future CK; Future Comprehensive Metabolic Panel; Future C-reactive Protein; Future Cyclic Citrul Peptide Antibody, IgG / IgA; Future HLA-B27 Antigen; Future Lupus Anticoag / Cardiolipin Ab; Future RF Isotypes, IgG, IgA, IgM EIA; Future Sedimentation Rate; Future Thyroid Antibodies; Future TSH+Free T4; Future Urinalysis With Culture If Indicated -; Future Aldolase; Future XR Chest 2 View; Future Chronic midline low back pain without sciatica 0 04/22/2024 Asthma 03/29/2023 Lumbar stenosis with neurogenic claudication Spinal stenosis of lumbar re gion with neurogenic claudication 01/22/2023 Shortness of breath 07/29/2020 Former smoker (Stopped 2011) 07/29/2020 TREV (obstructive sleep apnea) 07/29/2020 Class 2 obesity in adult 07/29/2020 Mild pulmonary hypertension (R/O WHO Group 3 - O SA) 07/29/2020 Dysthymia 10/31/2017 Primary insomnia 04/10/2017 Hypercholesterolemia 11/05/2015 Resolved Problems Problem Noted Date Diagnosed Date Resolved Date Arthritis of knee 11/01/2018 08/27/2024 Mid back pain 04/13/2016 08/27/2024 Well adult 11/02/2015 07/30/2023 Encounters Date Type Department Care Team Description 11/25/2024 Refill [facility] [address] [place] [address] Jung Schilling MD 11/21/2024 1:00 PM EDT Office Visit [facility] [address] [address] Ariel Coyne MD Borderline abnormal TFTs (Primary Dx) 11/21/2024 Travel 11/19/2024 Refill [facility] [address] [place] [address] Jung Schilling MD 10/27/2024 Refill [facility] [address] [facility] [place] [address] Jung Schilling MD COPD with exacerbation 10/06/2024 9:00 AM EDT Office Visit [facility] [address] [place] [address] Jane Kim APRN Asthma (Primary Dx); TREV (obstructive sleep apnea); Former smoker (Stopped 2009); Mild pulmonary hypertension (R/O WHO Group 3 - TREV); Class 2 obesity in adult, unspecified BMI, unspecified obesity type, unspecified whether serious comorbidity present; Shortness of breath 10/06/2024 Travel 09/25/2024 Results Follow-Up [facility] [address] [facility] [place] [address] Jung Schilling MD 09/23/2024 2:15 PM EDT Office Visit [facility] [address] [facility] [place] [address] Jung Schilling MD Hypercholesterolemia (Primary Dx); Dysthymia; Stress; Asthma; MORROW (dyspnea on exertion); Mid back pain; Seasonal allergies; Hyperglycemia; Primary insomnia; Paresthesia of right leg; Chronic right-sided low back pain with right-sided sciatica 09/23/2024 Travel 09/18/2024 Results Follow-Up [facility] [address] [facility] [place] [address] Jung Schilling MD 09/17/2024 8:17 AM EDT - 09/17/2024 11:59 PM EDT Hospital Encounter [facility] [address] [facility] [address] [place] [address] Jung Schilling MD Memory change Discharge Disposition: Home or Self Care 09/17/2024 Travel 09/15/2024 1:00 PM EDT Consult [facility] [address] [facility] [address] [place] [address] Zuleika Rodgers MD Antiphospholipid antibody positive (Primary Dx) 09/15/2024 10:30 AM EDT Office Visit [facility] [address] [place] [address] Tory Jerez MD Mild cognitive impairment (Primary Dx) 09/15/2024 Travel from Last 3 Months Immunizations Immunization Administration Dates Next Due COVID-19 (MODERNA) 1st,2nd,3rd Dose Monovalent 0 11/17/2020 Flu Vaccine Quad PF >36MO 01/17/2017 Fluzone >6mos 02/06/2024 Fluzone (or Fluarix & Flulaval for VFC) >6mos ,01/17/2017 MMR 07/10/2001,06/12/2001 Pneumococcal Conjugate 20-Valent (PCV20) 024 Tdap 02/18/2019 Family History Medical History Relation Name Comments Diabetes Father Innocencio Hearing loss Father Innocencio Anxiety disorder Mother Harriet Arthritis Mother Harriet Diabetes Mother Harriet Hearing loss Mother Harriet Stroke Mother Harriet Relation Name Status Comments Brother Alive Child x2 Alive Father Innocencio Alive Maternal Grandfather Maternal Grandmother Mother Harriet Alive Paternal Grandfather Paternal Grandmother Sister Alive Social History Tobacco Use Types Packs/Day Years [...] file Not on file Not on file Last Filed Vital Signs Vital Sign Reading Time Taken Comments Blood Pressure 110/68 11/21/2024 12:43 PM EDT Pulse 69 11/21/2024 12:43 PM EDT Temperature 36.5 C (97.7 F) 10/06/2024 8:58 AM EDT Respiratory Rate 18 09/23/2024 1:44 PM EDT Oxygen Saturation 92% 11/21/2024 12:43 PM EDT Inhaled Oxygen Concentration - - Weight 94.8 kg (209 lb) 11/21/2024 12:43 PM EDT Height 162.6 cm (5' 4 ) 11/21/2024 12:43 PM EDT Body Mass Index 35.87 11/21/2024 12:43 PM EDT Plan of Treatment Upcoming Encounters Date Type Department Care Team (Late st Contact Info) Description 01/05/2025 2:45 PM EDT Office Visit [facility] [address] [facility] [address] [place] [address] Tory Jerez MD [address] [facility] [address] [place] [address] 02/04/2025 1:15 PM EDT Office Visit [facility] [address] [facility] [address] [place] [address] Ariel Coyne MD [facility] [facility] [address] [place] [address] 02/17/2025 2:00 PM EST Office Visit [facility] [address] [place] [address] Aaliyah Montana APRN [address] [id number] 02/23/2025 9:00 AM EST Office Visit [facility] [address] [place] [address] Jung Schilling MD [address] [place] [address] Health Maintenance Due Date Last Done Comments COLOGUARD 2010 COLON CANCER SCREENING 5 YEA R SIGMOIDOSCOPY 2010 [address] COLONOGRAPHY 2010 FECAL OCCULT BLOOD TEST 2010 FIT Testing (1 year) 2010 ZOSTER VACCINE (1 of 2) 07/03/2015 ANNUAL PHYSICAL 11/01/2016 11/02/2015 COVID-19 Vaccine (2 - 2023-2 5 season) 2023 11/17/2020 INFLUENZA VACCINE 01/14/2025 02/06/2024, , 01/17/2017, Additional history exists LIPID PANEL 09/23/2025 09/23/2024, 01/15, 08/02/2023, Additional history exists COLONOSCOPY 02/17/2026 02/18/2016 COLORECTAL CANCER SCREENING 02/17/2026 TDAP/TD VACCINES (2 - Td or Tdap) 02/18/2029 019 Pneumococcal Vaccine 50+ Completed 02/06/2024 LUNG CANCER SCREENING Discontinued 06/09/2024, 023 HEPATITIS C SCREENING Completed 06/26/2024, 020 Medical Devices Implanted Type Area Key Operator Device Identifier Shelf Expiration Date Model / Serial / Lot Kt Seal Hemos Abs Floseal Matrx Fast/Prep 10ml - [id number] Implanted:Qty : 3 on 03/07/2023 by En Benjamin MD at [facility] Implant N/A: Spine Lumbar [employer] [id number] / / 0 Hemost Abs Surgifoam Sz100 8x12 10mm - [id number] Implanted:Qty : 1 on 03/07/2023 by En Benjamin MD at [facility] Implant N/A: Spine Lumbar [employer] J 1973 / / Procedures Procedure Name Priority Date/Time Associated Diagnosis Comments CBC AND DIFFERENTIAL Routine 09/23/2024 2:05 PM EDT Hypercholesterolemia HEMOGLOBIN A1C Routine 09/23/2024 2:05 PM EDT Hyperglycemia LIPID PANEL Routine 09/23/2024 2:05 PM EDT Hypercholesterolemia COMPREHENSIVE METABOLIC PANEL Routine 09/23/2024 2:05 PM EDT Hypercholesterolemia MRI BRAIN WO CONTRAST Routine 09/17/2024 9:10 AM EDT Memory change SCANNED COGNITIVE ASSESSMENT 09/15/2024 HEPATITIS PANEL, ACUTE Routine 06/26/2024 10:36 AM EDT Arthralgia, unspecified joint Fatigue, unspecified type MARY positive Abnormal laboratory test Abnormal CPK Primary osteoarthritis involving multiple joints CT CHEST WO CONTRAST DIAGNOSTIC Routine 06/09/2024 1:25 PM EST MORROW (dyspnea on exertion) SCANNED - COLONOSCOPY 02/18/2016 from Last 3 Months or Most Recently Relevant to Health Maintenance Results * (ABNORMAL) CBC & Differential (09/23/2024 2:05 PM EDT) WBC 8.1 3.4 - 10.8 x10E3/uL [facility] RBC 5.54 4.14 - 5.80 x10E6/uL [facility] Hemoglobin 16.1 13.0 - 17.7 g/dL [facility] Hematocrit 50.5 37.5 - 51.0 % [facility] MCV 91 79 - 97 fL [facility] MCH 29.1 26.6 - 33.0 pg [facility] MCHC 31.9 31.5 - 35.7 g/dL [facility] RDW 13.1 11.6 - 15.4 % [facility] Platelets 245 150 - 450 x10E3/uL [facility] Neutrophil Rel % 42 Not Estab. % [facility] Lymphocyte Rel % 40 Not Estab. % [facility] Monocyte Rel % 7 Not Estab. % [facility] Eosinophil Rel % 10 Not Estab. % [facility] Basophil Rel % 1 Not Estab. % [facility] Neutrophils Absolute 3.4 1.4 - 7.0 x10E3/uL [facility] Lymphocytes Absolute 3.2(H) 0.7 - 3.1 x10E3/uL [facility] Monocytes Absolute 0.6 0.1 - 0.9 x10E3/uL [facility] Eosinophils Absolute 0.8(H) 0.0 - 0.4 x10E3/uL [facility] Basophils Absolute 0.1 0.0 - 0.2 x10E3/uL [facility] Immature Granulocyte Rel % 0 Not Estab. % [facility] Immature Grans Absolute 0.0 0.0 - 0.1 x10E3/uL [facility] Blood 09/23/2024 2:05 PM EDT 09/23/2024 Narrative [facility] ([facility]) - 09/24/2024 9:10 AM EDT Performed at: 01 - [address] [id number] Test Borer Helper: Bill Francis PhD, Phone: [phone] Patient Fasting: Y us Jung Schilling MD LAB BLOOD ORDERABLES Final Resu lt [facility] ([facility]) [address] [place] [address], [facility] [address] [place] [address], * Hemoglobin A1c (09/23/2024 2:05 PM EDT) [facility] Hemoglobin A1C 5.6 4.8 - 5.6 % [facility] Comment: Prediabetes: 5.7 - 6.4 Diabetes: >6.4 Glycemic control for adults with diabetes: <7.0 Blood 09/23/2024 2:05 PM EDT 09/23/2024 Narrative [facility] [employer] [facility] [place] ([facility]) - 09/24/2024 9:10 AM EDT Performed at: [address] [place] [id number] Test Borer Helper: Bill Francis PhD, Phone: [phone] Patient Fasting: Y Jung Schilling MD LAB BLOOD ORDERABLES Final Resu lt [facility] (AMBULATORY) [address] [place] [address], [facility] [address] [place] [address], * (ABNORMAL) Lipid Panel (09/23/2024 2:05 PM EDT) [facility] Total Cholesterol 312(H) 100 - 199 mg/dL [facility] Triglycerides 678(H) 0 - 149 mg/dL [facility] HDL Cholesterol 41 >39 mg/dL [facility] VLDL Cholesterol Jesús 130(H) 5 - 40 mg/dL [facility] LDL Chol Calc (NIH) 141(H) 0 - 99 mg/dL [facility] LDL Calc Comment Comment [facility] Comment: Consider evaluating for Familial Hypercholesterolemia(FH), if clinically indicated. Blood 09/23/2024 2:05 PM EDT 09/23/2024 Narrative [facility] [employer] [facility] [place] ([facility]) - 09/24/2024 9:10 AM EDT Performed at: [place] [id number] [place], [place] [id number] Test Borer Helper: Bill Francis PhD, Phone: [phone] Patient Fasting: Y us Jung Schilling MD LAB BLOOD ORDERABLES Final Resu lt [facility] ([facility]) [address] [place] [address], [facility] [address] [place] [address], * Comprehensive Metabolic Panel (09/23/2024 2:05 PM EDT) [facility] Glucose 82 70 - 99 mg/dL [facility] BUN 16 6 - 24 mg/dL [facility] Creatinine 0.92 0.76 - 1.27 mg/dL [facility] EGFR Result 96 >59 mL/min/1.7 3 [facility] BUN/Creatinine Ratio 17 9 - 20 [facility] Sodium 141 134 - 144 mmol/L [facility] Potassium 4.4 3.5 - 5.2 mmol/L [facility] Chloride 102 96 - 106 mmol/L [facility] Total CO2 25 20 - 29 mmol/L [facility] Calcium 9.5 8.7 - 10.2 mg/dL [facility] Total Protein 7.4 6.0 - 8.5 g/dL [facility] Albumin 4.3 3.8 - 4.9 g/dL [facility] Globulin 3.1 1.5 - 4.5 g/dL [facility] Total Bilirubin 0.3 0.0 - 1.2 mg/dL [facility] Alkaline Phosphatase 101 44 - 121 IU/L [facility] AST (SGOT) 23 0 - 40 IU/L [facility] ALT (SGPT) 30 0 - 44 IU/L [facility] Blood 09/23/2024 2:05 PM EDT 09/23/2024 Narrative [facility] ([facility]) - 09/24/2024 9:10 AM EDT Performed at: - [facility] [address] [place], [place] [id number] Test Borer Helper: Bill Francis PhD, Phone: [phone] Patient Fasting: Y us Jung Schilling MD LAB BLOOD ORDERABLES Final Resu lt [facility] ([facility]) [address] [place] [address], [place] [phone] [facility] [address] [place] [address], [place] [phone] * MRI Brain Without Contrast (09/17/2024 9:10 AM EDT) Anatomical Region Laterality Modality Head, Neck N/A Magnetic Resonan ce 09/17/2024 9:20 AM EDT Impressions 09/17/2024 9:31 AM EDT Impression: 1.No acute intracranial process identified. 2.Findings suggestive of minimal chronic small vessel ischemic disease. 3.Partial left mastoid effusion. Electronically Signed: Stevo Goldstein MD 09/17/2024 9:31 AM EDT Workstation ID: [id number] Narrative 09/17/2024 9:31 AM EDT MRI BRAIN WO CONTRAST Date of Exam: 09/17/2024 8:42 AM EDT Indication: memory change. Comparison: October 09, 2019 Technique: Routine multiplanar/multisequence sequence images of the brain were obtained without contrast administration. Findings: Subtle foci of periventricular and subcortical white matter FLAIR hyperintensities are nonspecific, but likely the sequela of minimal chronic small vessel ischemic disease. No acute infarction, intracranial hemorrhage, or extra-axial collection is identified. The ventricles appear normal in caliber, with no evidence of mass effect or midline shift. The basal cisterns appear patent. The midline structures appear intact. The globes and orbits appear intact. The intracranial vascular flow-voids appear patent. There is a partial left mastoid effusion. Procedure Note Stevo Goldstein MD - 09/17/2024 MRI BRAIN WO CONTRAST Date of Exam: 09/17/2024 8:42 AM EDT Indication: memory change. Comparison: October 09, 2019 Technique: Routine multiplanar/multisequence sequence images of the brainwere obtained without contrast administration. Findings: Subtle foci of periventricular and subcortical white matter FLAIRhyperintensities are nonspecific, but likely the sequela of minimalchronic small vessel ischemic disease. No acute infarction, intracranialhemorrhage, or extra-axial collection is identified. The ventricles appear normal in caliber, with no evidence ofmass effect or midline shift. The basal cisterns appear patent. The midline structures appear intact. The globes and orbits appear intact.The intracranial vascular flow-voids appear patent. There is a partialleft mastoid effusion. IMPRESSION: Impression: 1.No acute intracranial process identified. 2.Findings suggestive of minimal chronic small vessel ischemic disease. 3.Partial left mastoid effusion. Electronically Signed: Stevo Goldstein MD 09/17/2024 9:31 AM EDT Workstation ID: [id number] Jung Schilling MD IMG MRI ORDERABLES Final Result * COGNITIVE ASSESSMENT SCAN (09/15/2024) Tory Jerez MD NEUROLOGY ORDERABLES Final Resu lt * Hepatitis Panel, Acute (06/26/2024 10:36 AM EDT) Hepatitis B Surface Ag Non-Reacti ve Non-Reacti ve 06/27/2024 12:08 AM EDT [facility] Hep A IgM Non-Reacti ve Non-Reacti ve 06/27/2024 12:08 AM EDT [facility] Hep B C IgM Non-Reacti ve Non-Reacti ve 06/27/2024 12:08 AM EDT [facility] Hepatitis C Ab Non-Reacti ve Non-Reacti ve 06/27/2024 12:08 AM EDT [facility] Blood Venipuncture / Unknown 06/26/2024 10:36 AM EDT 06/26/2024 10:37 AM EDT Narrative [facility] - 06/27/2024 12:08 AM EDT Results may be falsely decreased if patient taking Biotin. [place] DO LAB BLOOD ORDERABLES F inal Result [facility]
[address] [place] [id number], * CT Chest Without Contrast Diagnostic (06/09/2024 1:25 PM EST) Anatomical Region Laterality Modality Chest N/A Computed Tomogra phy 06/12/2024 7:06 AM EST Impressions 06/12/2024 7:12 AM EST Impression: 1. No acute intrathoracic process. 2. Stable pulmonary nodules measuring up to 5 mm. Recommend continued annual low-dose lung CT in 1 year. 3. Coronary artery calcifications. Electronically Signed: Cornell Rodriguez MD 06/12/2024 7:12 AM EST Workstation ID: [id number] Narrative 06/12/2024 7:[address] CHEST WO CONTRAST DIAGNOSTIC Date of Exam: 06/09/2024 1:18 PM EST Indication: dyspnea. Comparison: Low-dose chest CT 04/11/2023 Technique: Axial CT images were obtained of the chest without contrast administration. Reconstructed coronal and sagittal images were also obtained. Automated exposure control and iterative construction methods were used. Findings: Visualized noncontrast soft tissues of the lower neck are without acute abnormality. Heart size normal. Coronary artery calcifications are present. Negative for pericardial effusion or pleural effusion. No mediastinal or hilar adenopathy. No axillary adenopathy. Trachea and mainstem bronchi are patent. Stable right middle lobe 4 mm nodule (2/208). Right lower lobe 5 mm nodule stable (2/238). 5 mm lingular nodule stable (2/201). Mild linear atelectasis at the dependent left lower lobe. No consolidation or findings to indicate pneumonia. Upper abdomen demonstrates normal noncontrast visualized portions of the liver, spleen, adrenal glands, and pancreas. No free fluid in the upper abdomen. No aggressive osseous lesion or acute fracture. Procedure Note Cornell Rodriguez MD - 06/12/2024 CT CHEST WO CONTRAST DIAGNOSTIC Date of Exam: 06/09/2024 1:18 PM EST Indication: dyspnea. Comparison: Low-dose chest CT 04/11/2023 Technique: Axial CT images were obtained of the chest without contrastadministration. Reconstructed coronal and sagittal images were alsoobtained. Automated exposure control and iterative construction methodswere used. Findings: Visualized noncontrast soft tissues of the lower neck are without acuteabnormality. Heart size normal. Coronary artery calcifications arepresent. Negative for pericardial effusion or pleural effusion. Nomediastinal or hilar adenopathy. No axillary adenopathy. Trachea and mainstem bronchi are patent. Stable right middle lobe 4 mmnodule (2/208). Right lower lobe 5 mm nodule stable (2/238). 5 mm lingularnodule stable (2/201). Mild linear atelectasis at the dependent left lowerlobe. No consolidation or findings to indicate pneumonia. Upper abdomen demonstrates normal noncontrast visualized portions of theliver, spleen, adrenal glands, and pancreas. No free fluid in the upperabdomen. No aggressive osseous lesion or acute fracture. IMPRESSION: Impression: 1. No acute intrathoracic process. 2. Stable pulmonary nodules measuring up to 5 mm. Recommend continuedannual low- dose lung CT in 1 year. 3. Coronary artery calcifications. Electronically Signed: Cornell Rodriguez MD 06/12/2024 7:12 AM EST Workstation ID: [id number] Jane Kim SPECIAL CRIMES INVESTIGATOR IMG CT ORDERABLES Final Resul t * SCANNED - COLONOSCOPY (02/18/2016) Jung Scihlling MD CHART REVIEW TABS Final Resu lt from Last 3 Months or Most Recently Relevant to Health Maintenance Insurance [facility] PPO Member Subscriber Plan / Payer (Ef fective 2010-Present) Name:Tyrone Landrum Relation to Subscriber:Self Name:Tyrone Landrum Payer ID:[id number] (NAIC) Type:Not on file Address: [address] [place] [id number] [facility] Advance Directives * CPR (Attempt to Resuscitate) (Latest Code Status on File) Date Activated Date Inactivated Comments 03/07/2023 1:01 PM 03/08/2023 4:40 PM Question Answer Comments Code Status (Patient has no pulse and is not breathing): CPR (Attempt to Resuscitate) Medical Interventions (Patie nt has pulse or is breathing): Full Support Care Teams Insurance Administrative Assistant Relationship Specialty Start Date End Date Jung Schilling MD [address] [place] [address] PCP - General Family Medicine 11/02/15
--- OUTSIDE RECORDS SUMMARY | 2024-12-10 11:25 | XMS_ITS | Encounter Summary ---
Author Organization [facility] Address [address] [place] [address] Care Team Providers Care Electrical Appliance Servicer Name Role Phone Jung Schilling MD Primary Care Provider [phone] Encounter Details Date Type Department Care Team (Late st Contact Info) Description 09/25/2024 Results Follow-Up [facility] FAMILY MEDICINE [address] [place] [address] Jung Schilling MD 210 [place] [address] Social History Tobacco Use Types Packs/Day Years [...] on file documented as of this encounter Plan of Treatment Upcoming Encounters Date Type Department Care Team (Late st Contact Info) Description 01/05/2025 2:45 PM EDT Office Visit [facility] NEUROLOGY [address] [facility] 204 [place] [address] Tory Jerez MD [address] [facility] 204 [place] [address] 02/04/2025 1:15 PM EDT Office Visit [facility] ENDOCRINOLOGY 1775 [facility] 50 [place] [address] Ariel Coyne MD 1775 [facility] 50 [place] [address] 02/17/2025 2:00 PM EST Office Visit [facility] RHEUMATOLOGY 330 [facility] 100 [place] [address] Aaliyah Montana PHP LAMP DEVELOPER 330 [address] [facility] 100 [place], [place] [address] 02/23/2025 9:00 AM EST Office Visit [facility]INE 210 [place] [address] Jung Schilling MD 210 [place] [address] documented as of this encounter Visit Diagnoses Not on filedocumented in this encounter Additional Health Concerns Assessment Noted Time PHQ-2 Depression Total Score: 6 05/16/19 24 11:33 AM EST documented as of this encounter Care Teams Electrical Appliance Servicer Relationship Specialty Start Date End Date Jung Schilling MD 210 [place] [address] PCP - General Family Medicine 11/02/15 documented as of this encounter
--- OUTSIDE RECORDS SUMMARY | 2024-12-10 11:25 | XMS_ITS | Clinical Summary ---
Author Organization [facility] Address [address] [place] [address] Phone [email or web address] Care Team Providers Care Telephone Services Sales Representative Name Role Phone Cary Silverman Primary Care Provider [phone] Allergies No known active allergies Medications escitalopram (LEXAPRO) 10 MG tablet Take 10 mg by mouth daily. 9 Active naproxen (NAPROSYN) 500 MG tablet Take 500 mg by mouth 2 times daily. 9 Active rosuvastatin (CRESTOR) 40 MG tablet Take 40 mg by mouth daily. 9 Active Albuterol Sulfate 108 (90 Base) MCG/ACT aerosol powder Inhale 1-2 puffs. 0 Active Dulera 100-5 MCG/ACT inhaler Inhale 2 puffs 2 (two) times a day. 1 Active eszopiclone (LUNESTA) 3 MG tablet TAKE 1 TABLET BY MOUTH ONCE DAILY AT NIGHT TAKE IMMEDIATELY BEFORE BEDTIME 1 Active tiZANidine (ZANAFLEX) 4 MG capsule Take 4 mg by mouth 3 (three) times a day if needed. Active Active Problems Problem Noted Date Diagnosed Date MORROW (dyspnea on exertion) 07/29/2020 Former smoker 07/29/2020 Obesity, Class I, BMI 30-34.9 07/29/2020 TREV (obstructive sleep apnea) 07/29/2020 Pulmonary hypertension 07/29/2020 Arthritis of knee 11/01/2018 Dysthymia 10/31/2017 Primary insomnia 04/10/2017 Mid back pain 04/13/2016 Hypercholesterolemia 11/05/2015 Health examination of defined subpopulation /0 08/2007 Overview (09/12/2017): Immunizations Immunization Administration Dates Next Due Tdap (ADACEL BOOSTRIX) (CVX-[id number]) 02/18/2019 Social History Tobacco Use Types Packs/Day Years Used Date Smoking Tobacco: Former Smokeless Tobacco: Never Comments:staes non smoker , ? chew / dip Intimate Partner Violence Answer Date R ecorded Insults You Not on file 07/28/2020 Threatens You Not on file 07/28/2020 Screams at You Not on file 07/28/2020 Physically Hurt Not on file 07/28/2020 Intimate Partner Violence Score Not on file 07/28/2020 Depression Answer Date Recorded PHQ Total Score 0 01/28/2022 Stress Answer Date Recorded Stress in your Life Not on file 02/17/2024 Dealing with Stress 3 02/17/2024 Sex and Gender Information Value Date Recorded Sex Assigned at Not on file Legal Sex Male 10:06 AM CDT Gender Identity Not on file Sexual Orientation Not on file Last Filed Vital Signs Vital Sign Reading Time Taken Comments Blood Pressure 155/95 09/02/2022 10:27 AM EDT Pulse 91 09/02/2022 10:27 AM EDT Temperature 36.7 C (98 F) 06/28/2022 9:53 AM EDT Respiratory Rate 12 06/28/2022 9:53 AM EDT Oxygen Saturation 97% 09/02/2022 10:27 AM EDT Inhaled Oxygen Concentration - - Weight 83.9 kg (185 lb) 09/02/2022 10:27 AM EDT Height 165.1 cm (5' 5 ) 09/02/2022 10:27 AM EDT Body Mass Index 30.79 09/02/2022 10:27 AM EDT Plan of Treatment Health Maintenance Due Date Last Done Comments CT Colonography 1965 Colonoscopy 1965 Colorectal Cancer Screening Combo 1965 DNA Cologuard 1965 Dental Cleaning/Exam 1965 FIT or FOBT Test 1965 HIV Screening 1965 Hepatitis C Screening 1965 Sigmoidoscopy 1965 Annual Preventive Exam 07/03/1983 Hep B Infection Screening - Triple Screen 07/03/1983 Hepatitis B Immunization (1 of 3 - 19+ 3-dose series) 1984 Zoster Immunization (1 of 2) 07/03/2015 Covid-19 Immunization (2 - 2 024-25 season) 2023 11/17/2020 Influenza Immunization (#1) 2024 01/17/2017 Tetanus Diphtheria and Pertu ssis Immunization (2 - Td or Tdap) 02/18/2029 02/18/2019 HIB Immunization Aged Out No longer e ligible based on patient's age to complete this topic HPV Immunization Aged Out No longer e ligible based on patient's age to complete this topic Hepatitis A Immunization Aged Out No longer eligible based on patient's age to complete this topic Pneumococcal: Ped (0 to 5 Yr s) and At-Risk Member (6 to 64 Yrs) Aged Out No longer e ligible based on patient's age to complete this topic Polio Immunization Aged Out No longer eligible based on patient's age to complete this topic Insurance OPT OUT NO COPAY NB ANTHEM IN COPAY [address] [id number] [place] [address] Care Teams Telephone Services Sales Representative Relationship Specialty Start Date End Date Cary Silverman PA [address] [place] [address] PCP - General 01/21/19
--- OUTSIDE RECORDS SUMMARY | 2024-12-10 11:25 | XMS_ITS | Encounter Summary ---
Author Organization [facility] Address [address] [place] [address] Care Team Providers Care Physician Advisor Name Role Phone Jung Schilling MD Primary Care Provider [phone] Reason for Visit * Reason Onset Date Comments Med Refill 07/26/2022 Encounter Details Date Type Department Care Team (Late st Contact Info) Description 07/26/2022 Refill [facility] FAMILY MEDICINE 210 [place] [address] Jung Schilling MD 210 [place] [address] Primary insomnia; Arthritis of knee Social History Tobacco Use Types Packs/Day Years Used Date Smoking Tobacco: Former Cigarettes 0.3 30 1 - 2009 Smokeless Tobacco: Never Alcohol Use Standard Drinks/Week Comments Yes 0 (1 standard drink = 0.6 oz pur e alcohol) beer weekends PHQ-2 Answer Date Recorded Retired PHQ-9: Brief Depression Severity Measure Score 1 07/20/2021 Abuse Screen Answer Date Recorded Feels Unsafe at Home or Work/School no 04/01/2022 Feels Threatened by Someone no 03/16 Does Anyone Try to Keep You From Having Contact with Others or Doing Things Outside Your Home? no 04/01/2022 Physical Signs of Abuse Present no 04/01/2022 Sex and Gender Information Value Date Recorded [...] Description 01/05/2025 2:45 PM EDT Office Visit [facility] NE[facility] 210 [facility] 204 [place] [address] Tory Jerez MD 210 [facility] 204 [place] [address] 02/04/2025 1:15 PM EDT Office Visit [facility] ENDOCRINOLOGY [address] [phone] Ariel Coyne MD [address] [address] 02/17/2025 2:00 PM EST Office Visit [facility] RHEUMATOLOGY [address] [address] Aaliyah Montana APRN [address] [address] 02/23/2025 9:00 AM EST Office Visit [facility] FAMILY MEDICINE 210 [facility] [place] [address] Jung Schilling MD [address] [place] [address] documented as of this encounter Visit Diagnoses Diagnosis Primary insomnia Persistent disorder of initiating or maintaining sleep Arthritis of knee Unspecified arthropathy, lower leg documented in this encounter Additional Health Concerns Assessment Noted Time PHQ-2 Depression Total Score: 1 07/21/19 22 8:53 AM EDT documented as of this encounter Care Teams Physician Advisor Relationship Specialty Start Date End Date Jung Schilling MD [address] [place] [address] PCP - General Family Medicine 11/02/15 documented as of this encounter
--- OUTSIDE RECORDS SUMMARY | 2024-12-10 11:25 | XMS_ITS | Encounter Summary ---
Author Organization [facility] Address [address] [place] [id number] Care Team Providers Care Sample Tester Name Role Phone Jung Schilling MD Primary Care Provider [phone] Reason for Visit * Reason Onset Date Comments Med Refill 12/25/2022 Encounter Details Date Type Department Care Team (Late st Contact Info) Description 12/25/2022 Refill [facility] FAMILY MEDICINE 210 [place] [address] Jung Schilling MD 210 [place] [address] Primary insomnia Social History Tobacco Use Types Packs/Day Years Used Date Smoking Tobacco: Former Cigarettes 0.3 30 0 04/16/1979 - 04/16/2009 Smokeless Tobacco: Never Alcohol Use Standard Drinks/Week [...] Physical Signs of Abuse Present no 04/01/2022 PHQ-2 Answer Date Recorded Retired PHQ-9: Brief Depression Severity Measure Score 0 08/04/2022 Sex and Gender Information Value Date Recorded [...] Description 01/05/2025 2:45 PM EDT Office Visit [facility] NEUROLOGY 210 [facility] 204 [place] [address] Tory Jerez MD 210 [facility] 204 [place] [address] 02/04/2025 1:15 PM EDT Office Visit [facility] ENDOCRINOLOGY 1775 [facility] 50 [place] [phone] Ariel Coyne MD [address] [address] 02/17/2025 2:00 PM EST Office Visit [facility] RHEUMATOLOGY [address] [phone] Aaliyah Montana APRN [address] [address] 02/23/2025 9:00 AM EST Office Visit [facility] FAMILY MEDICINE 210 [facility] [place] [address] Jung Schilling MD [address] [place] [address] documented as of this encounter Visit Diagnoses Diagnosis Primary insomnia Persistent disorder of initiating or maintaining sleep documented in this encounter Care Teams Sample Tester Relationship Specialty Start Date End Date Jung Schilling MD [address] [place] [address] PCP - General Family Medicine 11/02/15 documented as of this encounter
--- OUTSIDE RECORDS SUMMARY | 2024-12-10 11:25 | XMS_ITS | Encounter Summary ---
Author Organization [facility] Address [address] [place] [address] Care Team Providers Care Control Room Operator Name Role Phone Jung Schilling MD Primary Care Provider [phone] Reason for Visit * Reason Comments Med Refill Encounter Details Date Type Department Care Team (Late st Contact Info) Description 11/25/2024 Refill [facility] FAMILY MEDICINE 210 [place] [address] Jung Schilling MD 210 [place] [address] Social History Tobacco Use Types [...] Description 01/05/2025 2:45 PM EDT Office Visit [facility] NEUROLOGY 2101 [facility] 204 [place] [address] Tory Jerez MD 210 [facility] 204 [place] [address] 02/04/2025 1:15 PM EDT Office Visit [facility] ENDOCRINOLOGY [address] [address] Ariel Coyne MD [address] [address] 02/17/2025 2:00 PM EST Office Visit [facility] RHEUMATOLOGY 330 [facility] 100 [place] [address] Aaliyah Montana APRN 330 [address] [facility] 100 [place], [place] [address] 02/23/2025 9:00 AM EST Office Visit [facility] FAMILY MEDICINE 210 [place] [phone] Jung Schilling MD 210 [place] [address] documented as of this encounter Visit Diagnoses Not on filedocumented in this encounter Additional Health Concerns Assessment Noted Time PHQ-2 Depression Total Score: 6 05/16/19 24 11:33 AM EST documented as of this encounter Care Teams Control Room Operator Relationship Specialty Start Date End Date Jung Schilling MD 210 [place] [address] PCP - General Family Medicine 11/02/15 documented as of this encounter
--- OUTSIDE RECORDS SUMMARY | 2024-12-10 11:25 | XMS_ITS | Encounter Summary ---
Author Organization [facility] Address [address] [place] [address] Care Team Providers Care Rubber Stamp Assembler Name Role Phone Jung Schilling MD Primary Care Provider [phone] Reason for Visit * Reason Comments Med Refill Encounter Details Date Type Department Care Team (Late st Contact Info) Description 10/27/2024 Refill [facility] 210 [place] [address] Jung Schilling MD 210 [place] [address] COPD with exacerbation Social History Tobacco Use Types Packs/Day Years [...] Description 01/05/2025 2:45 PM EDT Office Visit [facility] NEUROLOGY 2101 [facility] 204 [place] [address] Tory Jerez MD 210 [facility] 204 [place] [address] 02/04/2025 1:15 PM EDT Office Visit [facility] ENDOCRINOLOGY 1775 [facility] 50 [place] [address] Ariel Coyne MD [address] [address] 02/17/2025 2:00 PM EST Office Visit [facility] RHEUMATOLOGY 330 [facility] [place] [facility] 100 [place] [address] Aaliyah Montana APRN [address] [address] 02/23/2025 9:00 AM EST Office Visit [facility] FAMILY MEDICINE [address] [place] [phone] Jung Schilling MD 210 [place] [address] documented as of this encounter Visit Diagnoses Diagnosis COPD with exacerbation documented in this encounter Additional Health Concerns Assessment Noted Time PHQ-2 Depression Total Score: 6 05/16/19 24 11:33 AM EST documented as of this encounter Care Teams Rubber Stamp Assembler Relationship Specialty Start Date End Date Jung Schilling MD [address] [place] [address] PCP - General Family Medicine 11/02/15 documented as of this encounter
--- OUTSIDE RECORDS SUMMARY | 2024-12-10 11:25 | XMS_ITS | Encounter Summary ---
Author Organization [facility] Address [address] [place] [address] Care Team Providers Care Medical Imaging Technician Name Role Phone Jung Schilling MD Primary Care Provider [phone] Reason for Visit * Reason Comments Med Refill Encounter Details Date Type Department Care Team (Late st Contact Info) Description 11/19/2024 Refill [facility] FAMILY MEDICINE 210 [place] [address] Jung Schilling MD 210 [place] [address] Social History Tobacco Use Types [...] 2:45 PM EDT Office Visit [facility] NEUROLOGY 2101 [facility] 204 [place] [address] Tory Jerez MD 210 [facility] 204 [place] [address] 02/04/2025 1:15 PM EDT Office Visit [facility] ENDOCRINOLOGY [address] [address] Ariel Coyne MD [address] [address] 02/17/2025 2:00 PM EST Office Visit [facility] RHEUMATOLOGY 330 [facility] 100 [place] [address] Aaliyah Montana APRN [address] [facility] 100 [place], [place] [address] 02/23/2025 9:00 AM EST Office Visit [facility] FAMILY MEDICINE 210 [place] [address] Jung Schilling MD 210 [place] [address] documented as of this encounter Visit Diagnoses Not on filedocumented in this encounter Additional Health Concerns Assessment Noted Time PHQ-2 Depression Total Score: 6 05/16/19 24 11:33 AM EST documented as of this encounter Care Teams Medical Imaging Technician Relationship Specialty Start Date End Date Jung Schilling MD 210 [place] [address] PCP - General Family Medicine 11/02/15 documented as of this encounter
--- OUTSIDE RECORDS SUMMARY | 2024-12-10 11:25 | XMS_ITS | Encounter Summary ---
Author Organization [facility] Address [address] [place] [address] Care Team Providers Care Bobbin Collector Name Role Phone Jung Schilling MD Primary Care Provider Encounter Details Date Type Department Care Team (Late st Contact Info) Description 07/17/2024 Results Follow-Up [facility] PULMONARY & CRITICAL CARE MEDICINE [address] [place] [address] Jane Kim, [place] [address] [place] [phone] Social History Tobacco Use Types Packs/Day Years Used Date Smoking Tobacco: Former Cigarettes 1.3 45 0 04/16/1979 - 04/16/2009 Passive Smoke Exposure: Past Smokeless Tobacco: Never Alcohol Use Standard Drinks/Week Comments Not Currently 0 (1 standard drink = 0.6 oz pure alcohol) Social occasions like holidays AUDIT-C Answer [...] on file 01/20/2023 PHQ-2 Answer Date Recorded Retired PHQ-9: Brief Depression Severity Measure Score 21 05/16/2023 Sex and Gender Information Value Date Recorded [...] Description 01/05/2025 2:45 PM EDT Office Visit [facility] NEUROLOGY 2101 [facility] 204 [place] [address] Tory Jerez MD 210 [facility] 204 [place] [address] 02/04/2025 1:15 PM EDT Office Visit [facility] ENDOCRINOLOGY 1775 [facility] 50 [place] [address] Ariel Coyne MD 1775 [facility] 50 [place] [address] 02/17/2025 2:00 PM EST Office Visit [facility] RHEUMATOLOGY [address] [place] [address] Aaliyah Montana APRN 330 [address] [facility] 100 [place], [place] [address] 02/23/2025 9:00 AM EST Office Visit [facility] FAMILY MEDICINE 210 [place] [address] Jung Schilling MD 210 [place] [address] documented as of this encounter Visit Diagnoses Not on filedocumented in this encounter Additional Health Concerns Assessment Noted Time PHQ-2 Depression Total Score: 6 05/16/19 24 11:33 AM EST documented as of this encounter Care Teams Bobbin Collector Relationship Specialty Start Date End Date Jung Schilling MD 210 [place] [address] PCP - General Family Medicine 11/02/15 documented as of this encounter
--- OUTSIDE RECORDS SUMMARY | 2024-12-10 11:25 | XMS_ITS | Encounter Summary ---
Author Organization [facility] Address [address] [place] [address] Care Team Providers Care Punchboard Filling Machine Operator Name Role Phone Jung Schilling MD Primary Care Provider Encounter Details Date Type Department Care Team (Late st Contact Info) Description 06/27/2024 Results Follow-Up [facility] RHEUMATOLOGY [address] [address] [address] South Schwartz DO 330 [place] [id number] Social History Tobacco Use Types Packs/Day Years [...] Visit [facility] NEUROLOGY 2101 [facility] 204 [place] [address] Tory Jerez MD 210 [facility] 204 [place] [address] 02/04/2025 1:15 PM EDT Office Visit [facility] ENDOCRINOLOGY 1775 [facility] 50 [place] [address] Ariel Coyne MD 1775 [facility] 50 [place] [address] 02/17/2025 2:00 PM EST Office Visit [facility] RHEUMATOLOGY 330 [facility] 100 [place] [address] Aaliyah Montana TRUMPET PLAYER [address] [facility] 100 [place], [place] [address] 02/23/2025 9:00 AM EST Office Visit [facility] FAMILY MEDICINE 210 [place] [address] Jung Schilling MD 210 [place] [address] documented as of this encounter Visit Diagnoses Not on filedocumented in this encounter Additional Health Concerns Assessment Noted Time PHQ-2 Depression Total Score: 6 05/16/19 24 11:33 AM EST documented as of this encounter Care Teams Punchboard Filling Machine Operator Relationship Specialty Start Date End Date Jung Schilling MD 210 [place] [address] PCP - General Family Medicine 11/02/15 documented as of this encounter
--- OUTSIDE RECORDS SUMMARY | 2024-12-10 11:25 | XMS_ITS | Encounter Summary ---
Author Organization [facility] Address [address] [place] [address] Care Team Providers Care Capital Markets Specialist Name Role Phone Jung Schilling MD Primary Care Provider [phone] Encounter Details Date Type Department Care Team (Latest Contact Info) Description 11/21/2024 Travel Social History Tobacco Use Types Packs/Day Years [...] Description 01/05/2025 2:45 PM EDT Office Visit [facility] NEUROLOGY 210 [facility] 204 [place] [address] Tory Jerez MD [address] [address] 02/04/2025 1:15 PM EDT Office Visit [facility] ENDOCRINOLOGY [address] [address] Ariel Coyne MD [address] [address] 02/17/2025 2:00 PM EST Office Visit [facility] RHEUMATOLOGY [address] [address] Aaliyah Montana APRN 330 [facility] 100 [place], [place] [address] 02/23/2025 9:00 AM EST Office Visit [facility] FAMILY MEDICINE 210 [place] [address] Jung Schilling MD 210 [place] [address] documented as of this encounter Visit Diagnoses Not on filedocumented in this encounter Additional Health Concerns Assessment Noted Time PHQ-2 Depression Total Score: 6 05/16/19 24 11:33 AM EST documented as of this encounter Care Teams Capital Markets Specialist Relationship Specialty Start Date End Date Jung Schilling MD 210 [place] [address] PCP - General Family Medicine 11/02/15 documented as of this encounter
--- OUTSIDE RECORDS SUMMARY | 2024-12-10 11:25 | XMS_ITS | Encounter Summary ---
Author Organization [facility] Address [address] [place] [address] Care Team Providers Care Gut Puller Name Role Phone Jung Schilling MD Primary Care Provider [phone] Encounter Details Date Type Department Care Team (Late st Contact Info) Description 09/18/2024 Results Follow-Up [facility] FAMILY MEDICINE [address] [place] [address] Jung Schilling MD [address] [place] [address] Social History Tobacco Use Types [...] Description 01/05/2025 2:45 PM EDT Office Visit [facility] NEUROLOGY 2101 [facility] 204 [place] [address] Tory Jerez MD 210 [facility] 204 [place] [address] 02/04/2025 1:15 PM EDT Office Visit [facility] ENDOCRINOLOGY 1775 [facility] 50 [place] [address] Ariel Coyne MD 1775 [facility] 50 [place] [address] 02/17/2025 2:00 PM EST Office Visit [facility] RHEUMATOLOGY 330 [facility] 100 [place] [address] Aaliyah Montana FIRST CALENDER WORKER [address] [facility] 100 [place], [place] [phone] 02/23/2025 9:00 AM EST Office Visit [facility] FAMILY MEDICINE [address] [place] [address] Jung Schilling MD 210 [place] [address] documented as of this encounter Visit Diagnoses Not on filedocumented in this encounter Additional Health Concerns Assessment Noted Time PHQ-2 Depression Total Score: 6 05/16/19 24 11:33 AM EST documented as of this encounter Care Teams Gut Puller Relationship Specialty Start Date End Date Jung Schilling MD 210 [place] [address] PCP - General Family Medicine 11/02/15 documented as of this encounter
== END 2024-12-08 23:59 | disposition home or self-care (01) ==
LOC: LAB.DROPOF 12-10 11:23
PROVIDERS: PCP Nurse Practitioner; Visit Provider Nurse Practitioner
DX: J06.9 Acute upper respiratory infection, unspecified (principal)
CPT/HCPCS: 87631